=== PATIENT | female | born 1950 | race Hispanic/Latino ===

== ENCOUNTER 2024-08-16 08:34 | Emergency (ER) | payer MEDICARE ==
[~2024-08-16] VITALS: Ht 160 cm; Wt 72.7 kg
[2024-08-16] MEDS ORDERED: ONDANSETRON ODT4 MG PO (09:07)
[2024-08-16] MEDS ORDERED: DICYCLOMINE HCL20 MG PO (09:07)
[2024-08-16] MEDS ORDERED: PEPCID20 MG PO (09:07)
[2024-08-16 09:16] VITALS: PULSE 65; RESP 16; TEMP 99.1; O2SAT 98
== END 2024-08-16 09:16 | disposition home or self-care (01) ==
LOC: FSED 08:39
DX: R11.2 Nausea with vomiting, unspecified (principal); K52.9 Noninfective gastroenteritis and colitis, unspecified; R51.9 Headache, unspecified; I10 Essential (primary) hypertension; F17.210 Nicotine dependence, cigarettes, uncomplicated
CPT/HCPCS: 99283